=== PATIENT | female | born 1985 | race Two or more races ===

== ENCOUNTER 2017-12-19 22:31 | Emergency (ER) | payer MEDICAID ==
[~2017-12-19] VITALS: Ht 152.4 cm; Wt 61.2 kg
[2017-12-19] MEDS ORDERED: NKM (22:50)
--- NOTE | 2017-12-19 22:57 | Emergency Room Report ---
History of Present Illness General Chief Complaint: Pelvic Pain Source: Patient Present Illness HPI Is a 32-year-old female with no past medical history. Her menstrual period was 14 days ago. He presents with chief complaint of acute onset of pelvic pain. Onset was around 11 AM this morning. [place] the [place] with [place] when the pain came on all of a sudden. She had to go home because of the pain. Pain is bilateral pelvic/groin area but worse on the left. Pain is 10 out of 10. Worse with movement. No nausea no vomiting. No trauma. No bleeding or discharge. never had this problem before. Allergies: Coded Allergies: No Known Allergies (Unverified , 12/19/17) Patient History Past Medical History: none, see triage record, old chart reviewed Past Surgical History: none Pertinent Family History: none Social History: Denies: smoking Last Menstrual Period: 12/05/17 Now: No Immunizations: other Reviewed Nursing Documentation: PMH: Agreed, PSxH: Agreed Nursing Documentation-PM Past Medical History: No History, Except For Review of Systems Eye: Denies: eye pain, blurred vision ENT: Denies: ear pain, nose congestion, throat swelling Respiratory: Denies: cough, shortness of breath Cardiovascular: Denies: chest pain, palpitations Gastrointestinal: Reports: abdominal pain, Denies: diarrhea, nausea, vomiting Musculoskeletal: Denies: back pain, joint pain Skin: Denies: rash Neurological: Denies: headache, numbness Endocrine: Denies: increased thirst, increased urine Hematologic/Lymphatic: Denies: easy bruising All Other Systems: negative except mentioned in HPI Physical Exam Vital Signs Date Time Temp Pulse Resp B/P (MAP) Pulse Ox O2 Delivery O2 Flow Rate FiO2 12/19/17 22:46 98.2 98 20 96/45 97 Room Air 98.2 vitals normal Sp02 EP Interpretation: reviewed, normal General Appearance: well appearing, alert, mild distress - From pain. Crying Head: normocephalic, atraumatic Eyes: bilateral eye PERRL, bilateral eye EOMI ENT: hearing grossly normal, normal pharynx Neck: full range of motion, supple, no meningismus Respiratory: chest non-tender, lungs clear, normal breath sounds Cardiovascular #1: regular rate, rhythm, no murmur Gastrointestinal: normal bowel sounds, non tender, no mass, no organomegaly, no bruit, non-distended Musculoskeletal: back normal, gait/station normal, normal range of motion Psychiatric: mood/affect normal Skin: warm/dry Medical Decision Making Diagnostic Impression: Primary Impression: Pelvic pain Additional Impression: UTI (urinary tract infection) Qualified Codes: N30.00 - Acute cystitis without hematuria ER Course Patient presents with abdominal pain/pelvic pain. Labs showed a mild leukocytosis and possibly UTI. No evidence of acute abdomen. No evidence of obstruction or appendicitis. We'll discharge home. Patient felt better now. Lab Results Impression labs showed leukocytosis CT/MRI/US Diagnostic Results CT/MRI/US Diagnostic Results : Imaging Test Ordered: CT abdomen and pelvis Impression read by radiologist. No acute process. Last Vital Signs Date Time Temp Pulse Resp B/P (MAP) Pulse Ox O2 Delivery O2 Flow Rate FiO2 12/19/17 22:46 98.2 98 20 96/45 97 Room Air 98.2 Status: improved Disposition: HOME, SELF-CARE Condition: Stable Scripts Ibuprofen* (MOTRIN*) 600 Mg Tablet 600 MG ORAL THREE TIMES A DAY, #30 TAB 0 Refills Prov: LA HER M.D. 12/20/17 Cephalexin* (KEFLEX*) 500 Mg Capsule 500 MG ORAL TID, #21 CAP 0 Refills Prov: LA HER M.D. 12/20/17 Hydrocodone/Acetaminophen 5-325* (HYDROCODONE/ACETAMINOPHEN 5-325*) 1 Each Tablet 1 TAB ORAL Q6H Y for For Pain, #20 TAB 0 Refills Prov: LA HER M.D. 12/20/17 Patient Instructions: Pelvic Pain, Female Additional Instructions: Followup with your DrYudelka in 2 to 3 days. Return if not better within 12-24 hours. LA HER M.D. Dec 19, 2017 22:57
[2017-12-19 23:00] VITALS: BP 100/52
[2017-12-19] MEDS ORDERED: Ketorolac 30mg Inj IV ONE (23:00)
[2017-12-19] MEDS ORDERED: HYDROmorphone 1mg/ml Carpuject IVP ONE (23:00)
[2017-12-19 23:14] LABS: APPEARANCE,URINE SLIGHTLY CLOUDY; BILIRUBIN, URINE NEGATIVE (NEGATIVE); GLUCOSE, URINE (UA) NEGATIVE (NEGATIVE); KETONES,URINE NEGATIVE (NEGATIVE); LEUKOCYTE ESTERASE ,URINE 3+ (NEGATIVE); NITRITE,URINE NEGATIVE (NEGATIVE); PH,URINE 6 (4.5-8.0); PROTEIN,URINE NEGATIVE (NEGATIVE); UROBILINOGEN,URINE NORMAL MG/DL (0.0-1.0)
[2017-12-19 23:15] LABS: COLOR,URINE YELLOW
[2017-12-19 23:22] LABS: BASOPHILS % (AUTO) 1.4 % (0.0-2.0); EOSINOPHILS % (AUTO) 2.7 % (0.0-3.0); HEMATOCRIT 40.5 % (37.0-47.0); HEMOGLOBIN 13.9 G/DL (12.0-16.0); LYMPHOCYTES % (AUTO) 34.5 % (20.0-45.0); MEAN CORPUSCULAR VOLUME 85 FL (80-99); MONOCYTES % (AUTO) 6.9 % (1.0-10.0); NEUTROPHILS % (AUTO) 54.6 % (45.0-75.0); PLATELET COUNT 338 K/UL (150-450); RED BLOOD COUNT 4.75 M/UL (4.20-5.40); RED CELL DISTRIBUTION WIDTH 13.6 % (11.6-14.8); WHITE BLOOD COUNT 15.2 K/UL (4.8-10.8)
[2017-12-19 23:23] LABS: ANION GAP 9 mmol/L (5-15); BLOOD UREA NITROGEN 16 mg/dL (7-18); CALCIUM 8.7 MG/DL (8.5-10.1); CARBON DIOXIDE 27 MMOL/L (21-32); CHLORIDE 103 MMOL/L (98-107); CREATININE 1.2 MG/DL (0.55-1.30); POTASSIUM 3.9 MMOL/L (3.5-5.1); SODIUM 139 MMOL/L (136-145)
[2017-12-20] MEDS ORDERED: HYDROCODON-ACE1 EA15 ORAL (00:44)
[2017-12-20] MEDS ORDERED: IBUPROFEN600 MG ORAL (00:44)
[2017-12-20] MEDS ORDERED: KEFLEX500 MG ORAL (00:44)
[2017-12-20 00:55] VITALS: BP 100/52
--- NOTE | 2017-12-20 09:34 | Diagnostic Imaging Report ---
Indication: Abdominal pain Technique: Continuous helical transaxial imaging of the abdomen and pelvis was obtained from the lung bases to the pubic symphysis. No intravenous contrast was administered. Coronal 2-D reformats were also obtained. Automatic Exposure Control was utilized. Total Dose length Product (DLP): 816.[address] Dose Index Volume (CTDIvol): 16.71 mGy Comparison: none Findings: The lung bases appear clear. The stomach is moderately distended with food. There is also moderate amount of fecal retention in the colon. The appendix is seen and appears normal. No bowel obstruction identified. Uterus noted. Bladder is collapsed. No free fluid of significance or free air identified. No nephrolithiasis or hydronephrosis identified. Gallbladder is collapsed. IMPRESSION: Fecal burden noted. No acute findings. Other incidentals as above [facility] has communicated the preliminary results to the Emergency Department. Their findings are largely concordant with this report. The CT scanner at [facility] is accredited by the [employer] and the scans are performed using dose optimization techniques as appropriate to a performed exam including Automatic Exposure control.
== END 2017-12-20 00:55 | disposition home or self-care (01) ==
LOC: EMR 23:10
DX: N30.00 Acute cystitis without hematuria (principal)
CPT/HCPCS: 36415; 74176; 80048; 81003; 81025; 83690; 85025; 87086; 96361; 96374; 96375; 99284; J1170; J1885; J2405

== ENCOUNTER 2018-02-20 10:05 | Emergency (ER) | payer MEDICAID, OTHER ==
[~2018-02-20] VITALS: Ht 152.4 cm; Wt 67.1 kg
[~2018-02-20 10:05] MED LIST: HYDROCODON-ACE1 EA15 ORAL; IBUPROFEN600 MG ORAL; KEFLEX500 MG ORAL; NKM
[2018-02-20] MEDS ORDERED: Ketorolac 60mg Inj IM ONE (10:15)
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
--- NOTE | 2018-02-20 11:20 | Diagnostic Imaging Report ---
Indication: Chest pain Technique: Right rib series 3 views Comparison: None Findings: There is no radiographically evident displaced rib fracture. Right lung is clear. There is no pneumothorax. Impression: No radiographically evident displaced rib fracture.
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
[2018-02-20] MEDS ORDERED: IBUPROFEN600 MG ORAL (12:47)
[2018-02-20] MEDS ORDERED: CYCLOBENZAPRINE10 MG ORAL (12:47)
[2018-02-20 13:03] VITALS: BP 100/58
[2018-02-20 13:06] VITALS: BP 100/58
== END 2018-02-20 13:08 | disposition home or self-care (01) ==
LOC: EMR 10:20
DX: S20.219A Contusion of unspecified front wall of thorax, initial encounter (principal); S16.1XXA Strain of muscle, fascia and tendon at neck level, initial encounter; Y04.2XXA Assault by strike against or bumped into by another person, initial encounter
CPT/HCPCS: 81025; 96372; 99284